=== PATIENT | female | born 1965 | race Caucasian/White ===

== ENCOUNTER 2018-11-14 10:58 | Emergency (ER) | payer OTHER ==
[2018-11-14] MEDS ORDERED: cloNIDine TAB* 0.1 MG PO ONE (11:14)
[2018-11-14] MEDS ORDERED: Thrombin 5,000 UNITS* 1 APPLIC KIT - topical use - TOPICAL ONE (11:17)
[2018-11-14] MEDS ORDERED: Thrombin 5,000 UNITS(BOVINE)* for Ultrasound Guided Pseudoaneursym TOPICAL ONE (11:30)
--- NOTE | 2018-11-14 11:35 | ED ---
Throat Pain/Nasal Congestion - HPI Summary HPI Summary: A 53 y/o female accompanied by a friend presents to the ED c/o epistaxis this morning. In the ED room, the patient has a pulse of 101 BPM, O2 saturation of 99 %, and blood pressure of 168/98. 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 HX nose bleeds w/cauterization". According to the patient, she was bleeding slightly before 1000 this morning coming out her nose. She noted that when she blew her nose 10 minutes later, the bleeding slowed down, but she stated that she still wanted to get check out because of the way her mouth is. She thinks that since a heater was directly blowing at her last night, it might of dried her out. 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 She noted that there is plastic and metal in her nose. Surgery was done in [place], [place]. Additional PMHx of HBP, high cholesterol. Patient does take medication for her cholesterol and thyroid. No blood thinners. Allergic to Penicillins. - History of Current Complaint Chief Complaint: EDEpistaxis Time Seen by Provider: 11/14/18 11:10 Hx Obtained From: Patient Onset/Duration: Sudden Onset, Lasting Hours Associated Signs And Symptoms: Positive: Nasal Discharge - BLEEDING Cough: None - Allergies/Home Medications Allergies/Adverse Reactions: Allergies Allergy/AdvReac Type Severity Reaction Status Date / Time Penicillins Allergy Hives Verified 11/14/18 11:10 Home Medications: Home Medications Atorvastatin* [Lipitor 10 MG*] 1 tab PO DAILY 11/14/18 [History Confirmed ] PMH/Surg Hx/FS Hx/Imm Hx Endocrine/Hematology History: Reports: Hx Thyroid Disease Denies: Hx Diabetes Cardiovascular History: Reports: Hx Hypertension Respiratory History: Denies: Hx Asthma, Hx Chronic Obstructive Pulmonary Disease (COPD) GI History: Denies: Hx Ulcer Musculoskeletal History: Denies: Hx Scoliosis Neurological History: Denies: Hx Headaches - Surgical History Surgery Procedure, Year, and Place: knees x2, oral surgery Infectious Disease History: No Infectious Disease History: Denies: Hx Clostridium Difficile, Hx Hepatitis, Hx Human Immunodeficiency Virus (HIV), Hx of Known/Suspected MRSA, Hx Shingles, Hx Tuberculosis, Hx Known/ Suspected VRE, Hx Known/Suspected VRSA, History Other Infectious Disease, Traveled Outside the [place] in Last 30 Days - Family History Known Family History: Negative: Diabetes - Social History Alcohol Use: Occasionally Substance Use Type: Reports: None Smoking Status (MU): Heavy Every Day Tobacco Smoker Type: Cigarettes Amount Used/How Often: 1/3 PPD Length of Time of Smoking/Using Tobacco: 28+ years Review of Systems Negative: Fever Positive: Epistaxis All Other Systems Reviewed And Are Negative: Yes Physical Exam - Summary Physical Exam Summary: Appearance: Well appearing, no pain distress Skin: warm, dry, reflects adequate perfusion Head/face: normal Eyes: EOMI, MERLENE ENT: no active bleeding, epistaxis exam is normal, clotted blood in left nostril Neck: supple, non-tender Respiratory: CTA, breath sounds present Cardiovascular: RRR, pulses symmetrical Abdomen: non-tender, soft Musculoskeletal: normal, strength/ROM intact Neuro: normal, sensory motor intact, A&Ox3 Triage Information Reviewed: Yes Vital Signs On Initial Exam: Initial Vitals Temp Pulse Resp BP Pulse Ox 99.3 F 92 18 145/101 99 11/14/18 10:59 11/14/18 10:59 11/14/18 10:59 11/14/18 10:59 11/14/18 10:59 Vital Signs Reviewed: Yes Diagnostics - Vital Signs Vital Signs Temp Pulse Resp BP Pulse Ox 11/14/18 11:10 90 162/94 99 11/14/18 11:09 91 100 11/14/18 10:59 99.3 F 92 18 145/101 99 - Laboratory Lab Statement: Any lab studies that have been ordered have been reviewed, and results considered in the medical decision making process. Re-Evaluation - Re-Evaluation First Eval Re-Evaluation Time: 11:37 Change: Unchanged Comment: PATIENT REFUSES GETTING HER BLOOD DRAWN AND HEMATOLOGY TO BE DONE. DID CONSENT TO BLOOD WORK IF SHE STARTS TO BLEED AGAIN. Second Eval Re-Evaluation Time: 12:34 Change: Improved Comment: NO FURTHER BLEEDING. PATIENT BP RESPONDED TO MEDICATIONS. EENT Course/Dx - Course Course Of Treatment: A 53 y/o female accompanied by a friend presents to the ED c/o epistaxis this morning. In the ED room, the patient has a pulse of 101 BPM, O2 saturation of 99%, and blood pressure of 168/98. 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 HX nose bleeds w/cauterization". According to the patient, she was bleeding slightly before 1000 this morning coming out her nose. She noted that when she blew her nose 10 minutes later, the bleeding slowed down, but she stated that she still wanted to get check out because of the way her mouth is. She thinks that since a heater was directly blowing at her last night, it might of dried her out. Physical examination findings significant for no active bleeding, epistaxis exam is normal, clotted blood in left nostril. No laboratory scans were done. No hematology screens were done. In the ED course, the patient received Catapres and Thrombin. Patient refused getting her blood draw and hematology to be done. Patient did consent to blood work if she starts to bleed again. During re-evaluation, the patient has no further bleeding and the patient BP responded to the medications administered. Patient will be discharged with a diagnosis of epistaxis and hypertension. Patient is to follow up with primary care provider in 2-3 days. Patient is to return to ED for any new or worsening symptoms. Patient is agreeable with this plan. - Differential Diagnoses Differential Diagnoses: Epistaxis, Hypertension - Diagnoses Provider Diagnoses: Epistaxis, Hypertension Discharge - Sign-Out/Discharge Documenting (check all that apply): Patient Departure - DISCHARGE - Discharge Plan Condition: Stable Disposition: HOME Patient Education Materials: Nosebleed (ED), Hypertension (ED) Referrals: Huma Villegas MD [Primary Care Provider] - 3 Days Additional Instructions: FOLLOW UP WITH PRIMARY CARE PROVIDER IN 2-3 DAYS. RETURN TO ED FOR ANY NEW OR WORSENING SYMPTOMS. - Billing Disposition and Condition Condition: STABLE Disposition: Home - Attestation Statements Document Initiated by Carlosibe: Yes Documenting Scribe: Josse Massey Provider For Whom Jake is Documenting (Include Credential): Ryan Caba MD Scribe Attestation: Josse Paniagua scribed for Ryan Caba MD on 11/14/18 at 1251. Scribe Documentation Reviewed: Yes Provider Attestation: The documentation as recorded by the Josse davey accurately reflects the service I personally performed and the decisions made by me, Ryan Caba MD Status of Scribe Document: Viewed
[2018-11-14 13:05] VITALS: BP 147/89
== END 2018-11-14 12:55 | disposition home or self-care (01) ==
LOC: ED 10:58
DX: R04.0 Epistaxis (principal); I10 Essential (primary) hypertension; F17.210 Nicotine dependence, cigarettes, uncomplicated
CPT/HCPCS: 99282; A9270-GY

== ENCOUNTER 2019-08-13 05:07 | Emergency (ER) | payer OTHER ==
[2019-08-13 05:56] LABS: ABS Basophils 0.1 10^3/ul (0-0.2); ABS Eosinophils 0.3 10^3/ul (0-0.6); ABS Monocytes 0.7 10^3/ul (0-0.8); ABS Neutrophils 6.8 10^3/ul (1.5-7.7); Eosinophil % 3.4 %; Hematocrit 43 % (35-47); Hemoglobin 14.8 g/dL (12.0-16.0); Lymphocyte % 20.5 %; Mean Corpuscular HGB Conc 35 g/dL (31-36); Mean Corpuscular Hemoglobin 31 pg (27-31); Mean Corpuscular Volume 90 fL (80-97); Mean Platelet Volume 8.1 fL (7.4-10.4); Nucleated Red Blood Cells % 0.1; Platelet Count 347 10^3/uL (150-450); Red Blood Count 4.79 10^6 /uL (3.70-4.87); Red Cell Distribution Width 13 % (10-15); White Blood Count 9.9 10^3/uL (3.5-10.8)
[2019-08-13 06:04] LABS: INR 0.98 (0.82-1.09)
[2019-08-13 06:14] LABS: Albumin 4.7 g/dL (3.2-5.2); Albumin/Globulin Ratio 2.1 (1-3); BUN/Creatinine Ratio 15.8 (8-20); C Reactive Protein 4.77 mg/L (<8.01); Calcium 10.1 mg/dL (8.6-10.3); EGFR African American 95.3 (>60); EGFR Non-African American 78.7 (>60); Globulin 2.2 g/dL (2-4); Potassium 4.4 mmol/L (3.5-5.0); Total Bilirubin 0.5 mg/dL (0.2-1.0); Total Protein 6.9 g/dL (6.4-8.9)
--- NOTE | 2019-08-13 06:19 | ED ---
GI/ HPI - HPI Summary HPI Summary: 54 year old female presents with diarrhea and rectal bleed for past couple days. Se states that he ate Faroese and then developed the diarrhea. The diarrhea resolved 2 days ago. She states that two days ago she noticed so blood when she wiped. Has a history of hemorrhoids she believes as she has had this before. She states felt like she has had gas pain but that has resolved. no abdominal pain currently. No one else sick. No recent travel. No recent antibiotics usage. No vomiting or nausea. No fever. No dizziness or lightheadedness. - History of Current Complaint Chief Complaint: EDNauseaVomitDiarrh Time Seen by Provider: 08/13/19 05:35 Stated Complaint: BLOOD IN STOOL PER PT Hx Last Menstrual Period: MIRENA; Tubal 1997 Pain Intensity: 2 - Allergy/Home Medications Allergies/Adverse Reactions: Allergies Allergy/AdvReac Type Severity Reaction Status Date / Time Penicillins Allergy Hives Verified 11/14/18 11:10 Home Medications: Home Medications Citalopram TAB* [CeleXA TAB*] 20 mg PO DAILY 08/13/19 [History Confirmed ] EPINEPHrine [Epipen 2-Tom] 0.3 mg IM DAILY PRN 08/13/19 [History Confirmed 08/13] Polyethylene Glycol 3350* [Miralax*] 17 gm PO DAILY 08/13/19 [History Confirmed 08/13/19] PMH/Surg Hx/FS Hx/Imm Hx Endocrine/Hematology History: Reports: Hx Thyroid Disease Denies: Hx Diabetes Cardiovascular History: Reports: Hx Hypertension Respiratory History: Denies: Hx Asthma, Hx Chronic Obstructive Pulmonary Disease (COPD) GI History: Denies: Hx Ulcer Musculoskeletal History: Denies: Hx Scoliosis Neurological History: Denies: Hx Headaches - Surgical History Surgery Procedure, Year, and Place: knees x2, oral surgery Infectious Disease History: No Infectious Disease History: Denies: Hx Clostridium Difficile, Hx Hepatitis, Hx Human Immunodeficiency Virus (HIV), Hx of Known/Suspected MRSA, Hx Shingles, Hx Tuberculosis, Hx Known/ Suspected VRE, Hx Known/Suspected VRSA, History Other Infectious Disease, Traveled Outside the [place] in Last 30 Days - Family History Known Family History: Negative: Diabetes - Social History Alcohol Use: Occasionally Substance Use Type: Reports: Marijuana Substance Use Comment - Amount & Last Used: a few times a month Smoking Status (MU): Heavy Every Day Tobacco Smoker Type: Cigarettes Amount Used/How Often: 1/3 PPD Length of Time of Smoking/Using Tobacco: 28+ years Review of Systems Negative: Fever Negative: Chest Pain Negative: Shortness Of Breath Positive: Other - rectal bleed. Negative: Abdominal Pain All Other Systems Reviewed And Are Negative: Yes Physical Exam Triage Information Reviewed: Yes Vital Signs On Initial Exam: Initial Vitals Temp Pulse Resp BP Pulse Ox 97.5 F 85 18 175/109 98 08/13/19 05:09 08/13/19 05:09 08/13/19 05:09 08/13/19 05:09 08/13/19 05:09 Vital Signs Reviewed: Yes Appearance: Positive: Well-Appearing Skin: Positive: Warm, Dry Head/Face: Positive: Normal Head/Face Inspection Eyes: Positive: Normal, Conjunctiva Clear ENT: Positive: Pharynx normal Respiratory/Lung Sounds: Positive: Clear to Auscultation, Breath Sounds Present Cardiovascular: Positive: Normal, RRR Abdomen Description: Positive: Nontender, Soft, Other: - hemorrhoids present with bleeding present Bowel Sounds: Positive: Present Musculoskeletal: Positive: Normal Neurological: Positive: Normal Psychiatric: Positive: Normal Diagnostics - Vital Signs Vital Signs Temp Pulse Resp BP Pulse Ox 08/13/19 05:09 97.5 F 85 18 175/109 98 - Laboratory Lab Results: Lab Results 08/13/19 08/13/19 08/13/19 Range/Units 05:49 05:49 05:49 WBC 9.9 (3.5-10.8) 10^3/uL RBC 4.79 (3.70-4.87) 10^6 /uL Hgb 14.8 (12.0-16.0) g/dL Hct 43 (35-47) % MCV 90 (80-97) fL MCH 31 (27-31) pg MCHC 35 (31-36) g/dL RDW 13 (10-15) % Plt Count 347 (150-450) 10^3/uL MPV 8.1 (7.4-10.4) fL Neut % (Auto) 68.4 % Lymph % (Auto) 20.5 % [place] % (Auto) 7.2 % Eos % (Auto) 3.4 % Baso % (Auto) 0.5 % Absolute Neuts (auto) 6.8 (1.5-7.7) 10^3/ul Absolute Lymphs (auto) 2.0 (1.0-4.8) 10^3/ul Absolute Monos (auto) 0.7 (0-0.8) 10^3/ul Absolute Eos (auto) 0.3 (0-0.6) 10^3/ul Absolute Basos (auto) 0.1 (0-0.2) 10^3/ul Absolute Nucleated RBC 0.0 10^3/ul Nucleated RBC % 0.1 INR (Anticoag Therapy) 0.98 (0.82-1.09) Sodium 139 (135-145) mmol/L Potassium 4.4 (3.5-5.0) mmol/L Chloride 104 (101-111) mmol/L Carbon Dioxide 28 (22-32) mmol/L Anion Gap 7 (2-11) mmol/L BUN 12 (6-24) mg/dL Creatinine 0.76 (0.51-0.95) mg/dL Est GFR ( Amer) 95.3 (>60) Est GFR (Non-Af Amer) 78.7 (>60) BUN/Creatinine Ratio 15.8 (8-20) Glucose 117 H (70-100) mg/dL Calcium 10.1 (8.6-10.3) mg/dL Total Bilirubin 0.50 (0.2-1.0) mg/dL AST 23 (13-39) U/L ALT 40 (7-52) U/L Alkaline Phosphatase 124 H (34-104) U/L C-Reactive Protein 4.77 (<8.01) mg/L Total Protein 6.9 (6.4-8.9) g/dL Albumin 4.7 (3.2-5.2) g/dL Globulin 2.2 (2-4) g/dL Albumin/Globulin Ratio 2.1 (1-3) Lipase 46 (11.0-82.0) U/L Result Diagrams: 08/13/19 05:49 08/13/19 05:49 Lab Statement: Any lab studies that have been ordered have been reviewed, and results considered in the medical decision making process. GIGU Course/Dx - Course Course Of Treatment: 54 year old female presents with diarrhea and rectal bleed for past couple days. Se states that he ate Faroese and then developed the diarrhea. The diarrhea resolved 2 days ago. She states that two days ago she noticed so blood when she wiped. Has a history of hemorrhoids she believes as she has had this before. She states felt like she has had gas pain but that has resolved. no abdominal pain currently. No one else sick. No recent travel. No recent antibiotics usage. No vomiting or nausea. No fever. No dizziness or lightheadedness. On exam nontender abdomen. Has hemorrhoid present with some bleeding noted. wbc normal. H&H stable. Discussed will place patient on anusol and dibucaine. told to follow-up with surgery if no improvement. Patient understands and agrees with plan. - Diagnoses Differential Diagnoses - Female: Gastroenteritis (Viral), Gastroenteritis ( Bacterial), Hemorrhoids Provider Diagnoses: Hemorrhoids Discharge ED - Sign-Out/Discharge Documenting (check all that apply): Patient Departure Patient Received Moderate/Deep Sedation with Procedure: No - Discharge Plan Condition: Good Disposition: HOME Prescriptions: Dibucaine 1% OINT* [Nupercainal 1% oint*] 1 applic TOPICAL QID #1 tu Hydrocortisone SUPP* [Anusol HC Supp*] 25 mg [place] BID #28 supp Patient Education Materials: Hemorrhoids (ED) Referrals: Huma Villegas MD [Primary Care Provider] - [place] Hidalgo MD [Medical Doctor] - Additional Instructions: Inc fiber, continue miralax Do sitz baths Use anusol twice a day Use dibucaine up to 4 times a day sparingly Follow up with surgery Return to ED if any new or worsening symptoms - Billing Disposition and Condition Condition: GOOD Disposition: Home - Attestation Statements Provider Attestation: the patient was seen by the midlevel provider, it was determined by them that it was not necessary for me to see the patient, I was available for consult during the patient's visit in the ED. I did not establish and patient-physician relationship. The chart however has been reviewed and I am signing in an administrative capacity.
[2019-08-13 07:01] LABS: Urine Bacteria Absent (Absent); Urine Red Blood Cell Trace(0-2/hpf) (Absent); Urine Squamous Epithelial Cell Present (Absent); Urine White Blood Cell Trace(0-5/hpf) (Absent)
[2019-08-13 07:18] LABS: Urine Appearance Clear; Urine Bilirubin Negative (Negative); Urine Blood 2+ (Negative); Urine Color Yellow; Urine Glucose Negative (Negative); Urine Ketones Negative (Negative); Urine Nitrite Negative (Negative); Urine Protein Negative (Negative); Urine Specific Gravity 1.005 (1.010-1.030); Urine Urobilinogen Negative (Negative)
[2019-08-13 07:21] VITALS: BP 139/81
== END 2019-08-13 07:20 | disposition home or self-care (01) ==
LOC: ED 05:07
DX: K64.9 Unspecified hemorrhoids (principal); E07.9 Disorder of thyroid, unspecified; I10 Essential (primary) hypertension; F17.210 Nicotine dependence, cigarettes, uncomplicated; Z79.899 Other long term (current) drug therapy; Z88.0 Allergy status to penicillin
CPT/HCPCS: 36415; 80053; 81003; 81015; 82272; 83690; 85025; 85610; 86140; 87045; 87046; 87077; 87086; 87177; 87209; 87328; 87329; 87493; 87899; 99282